=== PATIENT | female | born 1960 ===

== ENCOUNTER 2017-04-26 08:13 | Emergency (ER) | payer OTHER ==
--- NOTE | 2017-04-26 12:15 | C.PDOC ---
History Of Present Illness 56 y/o female, with no significant PMHx, presents to ED for evaluation of wound to the left ankle for the past year. Patient states she has to stand most of the time at work, causing the area to be more painful after work. Notes being seen by her PMD last year for similar symptoms, but has not followed up since then. Denies calf pain, shortness of breath, fever, redness, or any other complaints at this time. Time Seen by Provider: 04/26/17 08:46 Chief Complaint (Nursing): Abnormal Skin Integrity History Per: Patient History/Exam Limitations: no limitations Onset/Duration Of Symptoms: Days (1 year) Current Symptoms Are (Timing): Still Present Location Of Injury: Left: Ankle Quality Of Symptoms: Painful. denies: Draining Recent travel outside of the [place]: No Additional History Per: Patient Past Medical History Reviewed: Historical Data, Nursing Documentation, Vital Signs Vital Signs: Last Vital Signs Temp 97.8 F 04/26/17 12:28 Pulse 73 04/26/17 12:28 Resp 20 04/26/17 12:28 BP 111/72 04/26/17 12:28 Pulse Ox 100 04/26/17 12:38 Family History: States: Unknown Family Hx - Social History Hx Alcohol Use: No Hx Substance Use: No - Immunization History Hx Tetanus Toxoid Vaccination: No Hx Influenza Vaccination: No Hx Pneumococcal Vaccination: No Review Of Systems Except As Marked, All Systems Reviewed And Found Negative. Constitutional: Negative for: Fever, Chills Cardiovascular: Negative for: Chest Pain Respiratory: Negative for: Shortness of Breath Musculoskeletal: Negative for: Leg Pain Skin: Positive for: Other (wound to left ankle) Neurological: Negative for: Weakness, Numbness Physical Exam - Physical Exam Appears: Non-toxic, No Acute Distress Skin: Warm, Dry, Other (stage 2 ulcer to medial aspect of left ankle with surrounding hyperpigmentation. No warmth, erythema, or discharge) Head: Atraumatic, Normacephalic Eye(s): bilateral: Normal Inspection, EOMI Nose: Normal Oral Mucosa: Moist Neck: Normal ROM, Supple Chest: Symmetrical Cardiovascular: Rhythm Regular Respiratory: Normal Breath Sounds, No Rales, No Rhonchi, No Wheezing Extremity: Normal ROM, No Tenderness, No Pedal Edema, No Calf Tenderness, Capillary Refill (less than 2 seconds), No Deformity, No Swelling Pulses: Left Dorsalis Pedis: Normal, Right Dorsalis Pedis: Normal Neurological/Psych: Oriented x3, Normal Speech, Normal Motor, Normal Sensation Gait: Steady ED Course And Treatment O2 Sat by Pulse Oximetry: 100 (RA) Pulse Ox Interpretation: Normal - CT Scan/US LE vascular: Other Rad Studies (CT/US): Read By Radiologist, Radiology Report Reviewed CT/US Interpretation: No DVT Progress Note: Venous duplex scan of LLE ordered and reviewed. Podiatry resident was paged, but patient does not wish to stay here, and states she will follow up with outpatient podiatry clinic. Discussed the importance of strict follow up and the risks of untreated ulcer. Pt is being discharged home, instructed to follow up Podiatry in 1-2 days for further evaluation as discussed. Case discussed with Dr Mckenzie, agreed upon plan and treatment. Disposition - Disposition Referrals: [facility] [Outside] [facility] [Outside] Disposition: HOME/ ROUTINE Disposition Time: 12:13 Condition: STABLE Additional Instructions: Vaya a trujillo mdico o la clnica en 2-5 damian sin falta, para mas evaluacin. [place] [facility] los medicamentos mitul indicado. Volver a la meli de emergencia en cualquier momento si los sntomas persisten o empeoran. 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 - Scribe Statement The provider has reviewed the documentation as recorded by the Scribe Rahel De La Cruz All medical record entries made by the Cindiibalexa were at my direction and personally dictated by me. I have reviewed the chart and agree that the record accurately reflects my personal performance of the history, physical exam, medical decision making, and the department course for this patient. I have also personally directed, reviewed, and agree with the discharge instructions and disposition.
[2017-04-26 12:29] VITALS: BP 111/72; PULSE 73; RESP 20; TEMP 97.8
[2017-04-26 12:31] VITALS: O2SAT 100
--- NOTE | 2017-04-27 11:03 | VASCLAB ---
PROCEDURE: Left Lower Extremity Venous Duplex Exam. HISTORY: Pain PRIORS: None. TECHNIQUE: Left common femoral, femoral, popliteal and posterior tibial, peroneal and great saphenous veins were evaluated. Flow was assessed with color Doppler, compressibility, assessment of phasic flow and augmentation response. Report prepared by HANSEL Comer, RVT FINDINGS: LEFT: 1. Common Femoral Vein: 1.1. Compressibility - Fully compressible: Thrombus - None : Flow - Phasic: Augmentation -Normal: Reflux - Mild.2.48 seconds 2. Femoral Vein: 2.1. Compressibility - Fully compressible: Thrombus - None: Flow - Phasic: Augmentation -Normal: Reflux - None. 3. Popliteal Vein: 3.1. Compressibility - Fully compressible: Thrombus - None: Flow - Phasic: Augmentation -Normal: Reflux - Moderate. 3.91 seconds 4. Posterior Tibial Vein: 4.1. Compressibility - Fully compressible: Thrombus - None: Flow - Phasic: Augmentation -Normal: Reflux - None. 5. Peroneal Vein: 5.1. Compressibility - Fully compressible: Thrombus - None: Flow - Phasic: Augmentation -Normal: Reflux - Mild.2.84 seconds 6. Great Saphenous Vein: 6.1. Compressibility - Fully compressible: Thrombus - None: Flow - Phasic: Augmentation - Normal: Reflux - Severe. >4.99 seconds OTHER FINDINGS: Normal venous flow noted in the right common femoral vein. IMPRESSION: 1. No evidence of deep or superficial vein thrombosis of the left lower extremity with excellent venous flow. 2. Valvular incompetence noted at the left saphenofemoral junction, common femoral, popliteal, peroneal and great saphenous veins.
== END 2017-04-26 12:29 | disposition home or self-care (01) ==
LOC: C.ER 08:13
DX: L97.329 Non-pressure chronic ulcer of left ankle with unspecified severity (principal)

== ENCOUNTER 2017-06-14 14:26 | Inpatient (IN) | payer OTHER ==
[2017-06-14] MEDS ORDERED: Cefepime 1 GM in Sodium Chloride 0.9% 50 ML IVPB STA (14:58)
[2017-06-14 15:12] LABS: BASO # 0.2 K/uL (0.0-0.2); BASO % 1.5 % (0.0-2.0); EOS # 0.2 K/uL (0.0-0.7); HEMATOCRIT 37.9 % (34.0-47.0); LYMPH # 2.4 K/uL (1.0-4.3); LYMPH % 24.6 % (20.0-40.0); MEAN CELL VOLUME 91.5 fL (81.0-99.0); MEAN CORPUSCULAR HEMOGLOBIN 31.6 pg (27.0-31.0); MEAN CORPUSCULAR HGB CONC 34.5 g/dL (33.0-37.0); MEAN PLATELET VOLUME 9.6 fL (7.2-11.7); MONO # 0.5 K/uL (0.0-0.8); MONO % 4.8 % (0.0-10.0); RED CELL DISTRIBUTION WIDTH 14.6 % (11.5-14.5); WHITE BLOOD COUNT 9.7 K/uL (4.8-10.8)
[2017-06-14 15:24] LABS: ALKALINE PHOSPHATASE 62 U/L (38-126); ALT/SGPT 42 U/L (9-52); AST/SGOT 36 U/L (14-36); BILIRUBIN,TOTAL 0.5 mg/dL (0.2-1.3); BLOOD UREA NITROGEN 18 mg/dL (7-17); CALCIUM 8.8 mg/dl (8.6-10.4); CARBON DIOXIDE 24 mmol/L (22-30); CHLORIDE 104 mmol/L (98-107); GFR AFRICAN-AMERICAN > 60; GLUCOSE,RANDOM 94 mg/dL (65-105); POTASSIUM 3.9 mmol/L (3.6-5.2); SODIUM 138 mmol/L (132-148); TOTAL PROTEIN 8.6 g/dL (6.3-8.3)
[2017-06-14] MEDS ORDERED: Vancomycin 1 gm/NS 200 ml 1 GM/200 ML BAG IVPB ONE (16:00)
--- NOTE | 2017-06-14 16:22 | C.PDOC ---
History Of Present Illness Patient sent to ED from medical clinic for evaluation of left lower leg nonhealing worsening wound that has been present for approx 1 year. Patient is s/p outpatient PO antibiotics (Bactrim given from ED 04/2017) without improvement. She states area is painful, and that it originally began as wound from her boots rubbing her leg. She denies fever, trauma, calf pain, SOB. She also denies PMHx of DM, DVT, or PAD/PVD. Time Seen by Provider: 06/14/17 14:29 Chief Complaint (Nursing): Abnormal Skin Integrity History Per: Patient History/Exam Limitations: no limitations Onset/Duration Of Symptoms: Persistent Current Symptoms Are (Timing): Worse Location Of Injury: Left: Leg Quality Of Symptoms: Painful Severity: Moderate Past Medical History Reviewed: Historical Data, Nursing Documentation, Vital Signs Vital Signs: Last Vital Signs Temp 98.0 F 06/14/17 14:32 Pulse 82 06/14/17 14:32 Resp 18 06/14/17 14:32 BP 136/84 06/14/17 14:32 Pulse Ox 99 06/14/17 17:44 - Medical History PMH: No Chronic Diseases Family History: States: No Known Family Hx - Social History Hx Alcohol Use: No Hx Substance Use: No - Immunization History Hx Tetanus Toxoid Vaccination: No Hx Influenza Vaccination: No Hx Pneumococcal Vaccination: No Review Of Systems Except As Marked, All Systems Reviewed And Found Negative. Constitutional: Negative for: Fever, Chills Cardiovascular: Negative for: Chest Pain Respiratory: Negative for: Shortness of Breath Gastrointestinal: Negative for: Nausea, Vomiting, Diarrhea Skin: Positive for: Other (nonhealing, worsening wound left lower calf) Neurological: Negative for: Weakness, Numbness Physical Exam - Physical Exam Appears: Well, Non-toxic, No Acute Distress Skin: Other (see extremity exam) Eye(s): bilateral: Normal Inspection Oral Mucosa: Moist Cardiovascular: Rhythm Regular Respiratory: Normal Breath Sounds, No Rales, No Rhonchi, No Wheezing Gastrointestinal/Abdominal: Normal Exam, Bowel Sounds, Soft, No Tenderness Extremity: No Calf Tenderness, Capillary Refill (< 2 sec all digits ), No Deformity, Other (left lower calf, medial aspect with central pustule with purulent discharge, surrounding erythema and thickened skin/chronic skin changes , (+) TTP, no fluctuance) Extremity: Bilateral: Normal ROM Pulses: Left Dorsalis Pedis: Normal, Right Dorsalis Pedis: Normal Neurological/Psych: Oriented x3, Normal Motor, Normal Sensation ED Course And Treatment - Laboratory Results Result Diagrams: 06/14/17 15:08 06/14/17 15:08 O2 Sat by Pulse Oximetry: 99 (RA) Pulse Ox Interpretation: Normal - CT Scan/US right tib/fib Xray Other Rad Studies (CT/US): Read By Radiologist, Radiology Report Reviewed CT/US Interpretation: Accession No. : [id number]. Patient Name / ID : WAYNE Washington / [id number]. Exam Date : 06/14/2017 15:20:37 ( Approved ). Study Comment : Sex / Age : F / 56Y. Creator : Elidia Lopez MD. Dictator : Elidia Lopez MD. Work Order Detailer : Legal Office Administrator : Elidia Lopez MD. Approver2 : Report Date : 06/14/2017 16:40:14. My Comment : . PROCEDURE: Radiographs of the left tibia and fibula. HISTORY: distal tib/fib wound, r/o osteomyelitis. COMPARISON: None available. TECHNIQUE: Frontal and lateral views obtained. FINDINGS: BONES: Bone alignment and mineralization are normal. There is no acute fracture or bone destruction. JOINT SPACES: Unremarkable. OTHER FINDINGS: None. IMPRESSION: No evidence of bone destruction or definite evidence for osteomyelitis. venous doppler CT/US Interpretation: as per US tech - no acute DVT, (+) severe valvular incompetence of deep & superficial veins. Progress Note: Blood work, Xray of left tib/fib, venous doppler ordered and reviewed. Patient given IV Vancomycin and IV Cefepime for nonhealing infected wound, possible osteomyelitis. - Physician Consult Information Physician Contacted: Claudette Sandoval Outcome Of Conversation: Discussed patient with hospitalist, agrees with admission and requests surgery consult. Consult for Dr. Kishore barahona. Medical Decision Making Medical Decision Making: differential diagnoses considered: cellulitis, abscess, osteomyelitis, DVT, PVD/ PAD Disposition - Disposition Disposition: HOSPITALIZED Disposition Time: 17:19 Condition: STABLE - Clinical Impression Clinical Impression: Nonhealing ulcer of left lower leg, Cellulitis, Osteomyelitis Decision To Admit - Pt Status Changed To: Hospital Disposition Of: Inpatient - Admit Certification Admit to Inpatient:: After my assessment, the patient will require hospitalization for at least two midnights. This is because of the severity of symptoms shown, intensity of services needed, and/or the medical risk in this patient being treated as an outpatient. - InPatient: Physician Admission Certification: I certify that this patient requires 2 or more midnights of care for the following reason:: see notes - . Bed Request Type: Regular Admitting Physician: Claudette Sandoval Patient Diagnosis: Nonhealing ulcer of left lower leg, Cellulitis, Osteomyelitis
--- NOTE | 2017-06-14 16:41 | RAD ---
PROCEDURE: Radiographs of the left tibia and fibula. HISTORY: distal tib/fib wound, r/o osteomyelitis COMPARISON: None available. TECHNIQUE: Frontal and lateral views obtained. FINDINGS: BONES: Bone alignment and mineralization are normal. There is no acute fracture or bone destruction. JOINT SPACES: Unremarkable. OTHER FINDINGS: None. IMPRESSION: No evidence of bone destruction or definite evidence for osteomyelitis.
--- NOTE | 2017-06-14 18:37 | CP.PCM.HP ---
<Nehemias Zamarripa - Last Filed: 06/14/17 21:56> History of Present Illness - History of Present Illness History of Present Illness: PGY-1 H&P for Dr. Mccarthy CC: left leg wound This is a 56 year old female with no PMHx who presents complaining of a non- healing wound on the left leg. Patient states that this has been ongoing for about 1 year now. There is pain in the region of the wound that is described as a burning 3/10 without radiation. Patient believes that this could be due to the footwear that she uses at work. There was skin breakdown and gradual worsening over time. Swelling over the region has been ongoing for months per patient. Patient states that ambulation for an extended period of time worsens her pain. Patient has tried several different types of creams without any benefit. Patient denies any associated fevers, chills, other rashes, itching. PMHx: Denies PSHx: Tubal ligation Allergies: NKDA Social: Denies tobacco, drugs, alcohol. 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 PMD: [facility] Home meds: ASA 81, vitamin B complex, Ginko Present on Admission - Present on Admission Any Indicators Present on Admission: No Review of Systems - Constitutional Constitutional: absent: Chills, Fever - EENT Eyes: absent: Change in Vision Ears: absent: Decreased Hearing Nose/Mouth/Throat: absent: Nasal Congestion - Cardiovascular Cardiovascular: absent: Chest Pain - Respiratory Respiratory: absent: Dyspnea - Gastrointestinal Gastrointestinal: absent: Abdominal Pain, Nausea, Vomiting - Genitourinary Genitourinary: absent: Dysuria, Hematuria - Musculoskeletal Musculoskeletal: absent: Back Pain - Integumentary Integumentary: Wounds (left leg wound) - Neurological Neurological: absent: Numbness, Tingling, Weakness - Psychiatric Psychiatric: absent: Anxiety - Endocrine Endocrine: absent: Fatigue Past Patient History - Infectious Disease Hx of Infectious Diseases: None - Past Social History Smoking Status: Never Smoked - PSYCHIATRIC Hx Substance Use: No - SURGICAL HISTORY Hx Surgeries: Yes Hx Tubal Ligation: Yes - ANESTHESIA Hx Anesthesia: Yes Hx Anesthesia Reactions: No Meds Allergies/Adverse Reactions: Allergies Allergy/AdvReac Type Severity Reaction Status Date / Time No Known Allergies Allergy Verified 06/14/17 14:31 Physical Exam - Constitutional Appears: No Acute Distress - Head Exam Head Exam: ATRAUMATIC, NORMOCEPHALIC - Eye Exam Eye Exam: EOMI, PERRL - ENT Exam ENT Exam: Mucous Membranes Moist - Respiratory Exam Respiratory Exam: Clear to Auscultation Bilateral. absent: Rales, Rhonchi, Wheezes - Cardiovascular Exam Cardiovascular Exam: REGULAR RHYTHM, +S1, +S2 - GI/Abdominal Exam GI & Abdominal Exam: Normal Bowel Sounds, Soft. absent: Distended, Tenderness - Extremities Exam Extremities exam: Positive for: pedal pulses present Additional comments: Pedal pulses present bilaterally. Left leg superior and posterior to the medial malleolus is a 3cm x3cm circular lesion with dried blood and dried purulent material with eschar overlying. Non-pitting edema on left leg. No edema on the right leg. - Neurological Exam Neurological exam: Alert, CN II-XII Intact, Oriented x3 - Psychiatric Exam Psychiatric exam: Normal Affect, Normal Mood - Skin Skin Exam: Dry, Intact, Normal Color, Warm Results - Vital Signs Recent Vital Signs: Last Vital Signs Temp 98.0 F 06/14/17 14:32 Pulse 82 06/14/17 14:32 Resp 18 06/14/17 14:32 BP 136/84 06/14/17 14:32 Pulse Ox 99 06/14/17 18:29 - Labs Result Diagrams: 06/14/17 15:08 06/14/17 15:08 Labs: Laboratory Results - last 24 hr 06/14/17 06/14/17 15:08 15:08 WBC 9.7 RBC 4.15 Hgb 13.1 Hct 37.9 MCV 91.5 MCH 31.6 H MCHC 34.5 RDW 14.6 H Plt Count 224 MPV 9.6 Neut % (Auto) 67.1 Lymph % (Auto) 24.6 [place] % (Auto) 4.8 Eos % (Auto) 2.0 Baso % (Auto) 1.5 Neut # 6.5 Lymph # 2.4 [place] # 0.5 Eos # 0.2 Baso # 0.2 ESR 10 Sodium 138 Potassium 3.9 Chloride 104 Carbon Dioxide 24 Anion Gap 14 BUN 18 H Creatinine 0.5 L Est GFR ( Amer) > 60 Est GFR (Non-Af Amer) > 60 Random Glucose 94 Calcium 8.8 Total Bilirubin 0.5 AST 36 ALT 42 Alkaline Phosphatase 62 Total Protein 8.6 H Albumin 4.4 Globulin 4.2 H Albumin/Globulin Ratio 1.0 Assessment & Plan - Assessment and Plan (Free Text) Plan: Non-healing leg wound r/o osteomyelitis Vancomycin 1 gm Q12H NS @ 75 cc/hr f/u MRI left LE ED consulted surgery Dr. Novak, help appreciated. They recommended podiatry evaluation. Podiatry Dr. Avalos consulted, help appreciated. ID Dr. Jaramillo consulted, help appreciated. Left LE venous dopplers negative for DVT F/u ESR, CRP F/u blood, wound, urine cultures F/u UA Wound care referral Prophylactic Measure Heparin 5000 units SC Q8 Protonix 40 mg PO daily Heart Healthy Diet f/u hemoglobin A1c, TSH, lipid panel Case DW Dr. Shari Zamarripa PGY-1 <Braden Mccarthy - Last Filed: 06/15/17 19:32> Results - Vital Signs Recent Vital Signs: Last Vital Signs Temp 98.0 F 06/15/17 15:15 Pulse 76 06/15/17 15:15 Resp 20 06/15/17 15:15 BP 111/75 06/15/17 15:15 Pulse Ox 98 06/15/17 15:15 - Labs Result Diagrams: 06/15/17 08:02 06/15/17 08:02 Labs: Laboratory Results - last 24 hr 06/15/17 06/15/17 06/15/17 07:16 08:02 08:02 WBC 6.5 RBC 3.95 Hgb 12.5 Hct 35.7 MCV 90.5 MCH 31.7 H MCHC 35.0 RDW 14.4 Plt Count 210 MPV 9.3 Neut % (Auto) 69.8 Lymph % (Auto) 20.6 [place] % (Auto) 5.3 Eos % (Auto) 3.5 Baso % (Auto) 0.8 Neut # 4.5 Lymph # 1.3 [place] # 0.3 Eos # 0.2 Baso # 0.1 ESR 15 Sodium 140 Potassium 3.7 Chloride 108 H Carbon Dioxide 25 Anion Gap 11 BUN 10 Creatinine 0.6 L Est GFR ( Amer) > 60 Est GFR (Non-Af Amer) > 60 Random Glucose 91 Hemoglobin A1c Calcium 8.5 L Total Bilirubin 1.1 AST 31 ALT 31 Alkaline Phosphatase 55 C-React Prot High Sens Total Protein 6.4 Albumin 3.8 Globulin 2.5 Albumin/Globulin Ratio 1.5 Triglycerides 95 Cholesterol 142 LDL Cholesterol Direct 51 HDL Cholesterol 55 TSH 3rd Generation 3.42 Urine Color Straw Urine Clarity Clear Urine pH 5.0 Ur Specific [place] 1.012 Urine Protein Negative Urine Glucose (UA) Normal Urine Ketones Negative Urine Blood 1+ H Urine Nitrate Negative Urine Bilirubin Negative Urine Urobilinogen Normal Ur Leukocyte Esterase Neg Urine WBC (Auto) 1 Urine RBC (Auto) < 1 Ur Squamous Epith Cells < 1 06/15/17 06/15/17 08:02 08:02 WBC RBC Hgb Hct MCV MCH MCHC RDW Plt Count MPV Neut % (Auto) Lymph % (Auto) [place] % (Auto) Eos % (Auto) Baso % (Auto) Neut # Lymph # [place] # Eos # Baso # ESR Sodium Potassium Chloride Carbon Dioxide Anion Gap BUN Creatinine Est GFR ( Amer) Est GFR (Non-Af Amer) Random Glucose Hemoglobin A1c 5.6 Calcium Total Bilirubin AST ALT Alkaline Phosphatase C-React Prot High Sens 2.86 Total Protein Albumin Globulin Albumin/Globulin Ratio Triglycerides Cholesterol LDL Cholesterol Direct HDL Cholesterol TSH 3rd Generation Urine Color Urine Clarity Urine pH Ur Specific [place] Urine Protein Urine Glucose (UA) Urine Ketones Urine Blood Urine Nitrate Urine Bilirubin Urine Urobilinogen Ur Leukocyte Esterase Urine WBC (Auto) Urine RBC (Auto) Ur Squamous Epith Cells Attending/Attestation - Attestation I have personally seen and examined this patient.: Yes I have fully participated in the care of the patient.: Yes I have reviewed all pertinent clinical information: Yes Notes (Text): patient was seen and examined \1.cellulitis of leg 2.Nonhealing wound infection plan discussed with the resident and agree with the documentation
[2017-06-14] MEDS ORDERED: Sodium Chloride 0.9% 1,000 ML ONE (18:59)
[2017-06-14] MEDS: Sodium Chloride 0.9% 1,000 ML IV SCH (19:06)
[2017-06-14 19:49] VITALS: RESP 20
--- NOTE | 2017-06-14 20:11 | CP.PCM.CON ---
History of Present Illness - History of Present Illness History of Present Illness: GENERAL SURGERY CONSULT NOTE FOR DR. PATTEN 56yo F with no PMHx presents to the ED with non healing leg wound. The wound first appeared about a year and a half ago after the patient got new boots. She states that she walked a lot in the boots which created a wound there which has since progressed. She has since stopped wearing them but her wound did not improve. Three days ago, she noticed some smelly drainage from the wound. She states that she has pain while walking but only at the wound site and not anywhere else. Currently, her pain is completely gone. She denies nausea, vomiting, diarrhea, CP, SOB. She has no history of diabetes and never smoked. Per the patient, her left leg has been swollen and larger than her right leg ever since the wound first appeared. 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 PMHx: none Surgeries: tubal ligation Allergies: none Social history: denies etoh, tobacco use, or illicit drug use. States her only "bad habit" is lots of caffeine Review of Systems - Review of Systems All systems: reviewed and no additional remarkable complaints except (as per HPI ) Past Patient History - Infectious Disease Hx of Infectious Diseases: None - Past Social History Smoking Status: Never Smoked - PSYCHIATRIC Hx Substance Use: No - SURGICAL HISTORY Hx Surgeries: Yes Hx Tubal Ligation: Yes - ANESTHESIA Hx Anesthesia: Yes Hx Anesthesia Reactions: No Meds Allergies/Adverse Reactions: Allergies Allergy/AdvReac Type Severity Reaction Status Date / Time No Known Allergies Allergy Verified 06/14/17 14:31 - Medications Medications: Current Medications Heparin Sodium (Porcine) (Heparin) 5,000 units SC Q8 [facility] Sodium Chloride (Sodium Chloride 0.9%) 1,000 mls @ 75 mls/hr IV .[id number] [facility] Last Admin: 06/14/17 19:06 Dose: 75 mls/hr Vancomycin/Sodium Chloride (Vancomycin 1 Gm/Ns 200 Ml) 1 gm in 200 mls @ 133 mls/hr IVPB Q12H [facility] Stop: 06/20/17 07:01 Pantoprazole Sodium (Protonix Ec Tab) 40 mg PO DAILY [place] Physical Exam - Constitutional Appears: Well, Non-toxic, No Acute Distress - Head Exam Head Exam: ATRAUMATIC, NORMAL INSPECTION - Eye Exam Eye Exam: EOMI, Normal appearance - Respiratory Exam Respiratory Exam: NORMAL BREATHING PATTERN. absent: Respiratory Distress - Cardiovascular Exam Cardiovascular Exam: +S1, +S2 - GI/Abdominal Exam GI & Abdominal Exam: Soft. absent: Tenderness - Extremities Exam Extremities exam: Positive for: pedal pulses present. Negative for: calf tenderness, tenderness Additional comments: Strong palpable DP and PT pulses bilaterally Left leg: edematous, warmer to touch, nontender Right leg: no edema, cooler to touch, nontender - Neurological Exam Neurological exam: Alert, Oriented x3 - Psychiatric Exam Psychiatric exam: Normal Affect, Normal Mood - Skin Skin Exam: Dry, Warm Additional comments: On left medial leg: circular lesion with dried purulent discharge. Surrounding erythema. No fluctuance or induration. Results - Vital Signs Recent Vital Signs: Last Vital Signs Temp 97.9 F 06/14/17 19:48 Pulse 69 06/14/17 19:48 Resp 20 06/14/17 19:48 BP 129/84 06/14/17 19:48 Pulse Ox 98 06/14/17 19:48 - Labs Result Diagrams: 06/14/17 15:08 06/14/17 15:08 Labs: Laboratory Results - last 24 hr 06/14/17 06/14/17 06/14/17 15:08 15:08 19:06 WBC 9.7 RBC 4.15 Hgb 13.1 Hct 37.9 MCV 91.5 MCH 31.6 H MCHC 34.5 RDW 14.6 H Plt Count 224 MPV 9.6 Neut % (Auto) 67.1 Lymph % (Auto) 24.6 [place] % (Auto) 4.8 Eos % (Auto) 2.0 Baso % (Auto) 1.5 Neut # 6.5 Lymph # 2.4 [place] # 0.5 Eos # 0.2 Baso # 0.2 ESR 10 APTT 36 H Sodium 138 Potassium 3.9 Chloride 104 Carbon Dioxide 24 Anion Gap 14 BUN 18 H Creatinine 0.5 L Est GFR ( Amer) > 60 Est GFR (Non-Af Amer) > 60 Random Glucose 94 Calcium 8.8 Total Bilirubin 0.5 AST 36 ALT 42 Alkaline Phosphatase 62 Total Protein 8.6 H Albumin 4.4 Globulin 4.2 H Albumin/Globulin Ratio 1.0 Assessment & Plan - Assessment and Plan (Free Text) Assessment: 56yo F with no PMHx presents with non healing left leg wound. - X-ray: no evidence of osteomyelitis - Leg US: no DVT - Patient has good circulation to both lower extremities - No I&D needed at this time - Treat locally - Elevate leg to decrease edema - Recommend podiatry consult - Discussed plan with Dr. Kishore Schmitt PGY-3
[2017-06-14] MEDS: Cefepime IV 2 gm in Dextrose 2 GM/100 ML BAG IVPB SCH (22:04)
--- NOTE | 2017-06-14 23:24 | CP.PCM.CON ---
History of Present Illness - History of Present Illness History of Present Illness: Podiatry note for Dr. Avalos 56 year old female with no PMHx seen at bedside for chronic, nonhealing venous stasis ulceration to the medial, distal aspect of her left leg that she states has been present for the last 8 months. She states that the wound began when her boots rubbed the skin off of that area of her leg. Patient states that the wound is the most healed that it has ever been but is still not completely healed and causes her pain when she presses on it. Patient states that she has noticed very small amounts of clear drainage from the wound and a small periwound ring of redness but denies any purulent drainage or malodor. Patient denies any recent N/V/F/C/CP/SOB/posterior calf pain/constipation/urinary retention. Patient denies any further pedal complaints at this time. PMH: Denies Meds: Aspirn, Ginkgo Biloba leaf, previous use of Bactrim (DC'd) All: NKDA PSH: Tubal ligation FH: Unremarkable SH: Denies tobacco, alcohol or illicit drug use Review of Systems - Review of Systems Review of Systems: ROS as per HPI. All other systems reviewed and found to be negative Past Patient History - Infectious Disease Hx of Infectious Diseases: None - Past Medical History & Family History Past Medical History?: Yes - Past Social History Smoking Status: Never Smoked - MUSCULOSKELETAL/RHEUMATOLOGICAL Hx Falls: No - PSYCHIATRIC Hx Substance Use: No - SURGICAL HISTORY Hx Surgeries: Yes Hx Tubal Ligation: Yes - ANESTHESIA Hx Anesthesia: Yes Hx Anesthesia Reactions: No Meds Allergies/Adverse Reactions: Allergies Allergy/AdvReac Type Severity Reaction Status Date / Time No Known Allergies Allergy Verified 06/14/17 14:31 - Medications Medications: Current Medications Heparin Sodium (Porcine) (Heparin) 5,000 units SC Q8 [facility] Last Admin: 06/14/17 21:49 Dose: 5,000 units Sodium Chloride (Sodium Chloride 0.9%) 1,000 mls @ 75 mls/hr IV .[id number] [facility] Last Admin: 06/14/17 19:06 Dose: 75 mls/hr Vancomycin/Sodium Chloride (Vancomycin 1 Gm/Ns 200 Ml) 1 gm in 200 mls @ 133 mls/hr IVPB Q12H [facility] Stop: 06/20/17 07:01 Cefepime HCl (Maxipime Iv 2 Gm Premix) 2 gm in 100 mls @ 200 mls/hr IVPB Q12 [facility] Stop: 06/19/17 22:01 Last Admin: 06/14/17 22:04 Dose: 200 mls/hr Pantoprazole Sodium (Protonix Ec Tab) 40 mg PO DAILY [facility] Physical Exam - Constitutional Appears: Well, Non-toxic, No Acute Distress - Extremities Exam Additional comments: LE focused exam: Vasc: DP/PT pulses palpable 2/4 b/l. Skin temperature warm to warm from proximal to distal. CFT < 3 seconds to all digits b/l. Minimal edema noted to periwound area Neuro: epicritic and protective sensation grossly intact b/l Derm: Approx. 3 cm x 3 cm x 0.1 cm venous stasis ulceration noted to medial distal aspect of patient's left leg. 90% coverage by eschar. Minimal periwound erythema noted. < 1 cc of serous drainage expressed from wound. No probe to bone , tunneling, tracking or undermining. No malodor, increased warmth, cellulitic streaking or purulent drainage noted. Otherwise no open lesions, maceration, xerosis, abnormal pigmentation, abnormal growths noted to b/l LE. MSK: POP to wound site. No gross anatomical deformities noted clinically Results - Vital Signs Recent Vital Signs: Last Vital Signs Temp 97.9 F 06/14/17 19:48 Pulse 69 06/14/17 19:48 Resp 20 06/14/17 19:48 BP 129/84 06/14/17 19:48 Pulse Ox 98 06/14/17 19:48 - Labs Result Diagrams: 06/14/17 15:08 06/14/17 15:08 Labs: Laboratory Results - last 24 hr 06/14/17 06/14/17 06/14/17 15:08 15:08 19:06 WBC 9.7 RBC 4.15 Hgb 13.1 Hct 37.9 MCV 91.5 MCH 31.6 H MCHC 34.5 RDW 14.6 H Plt Count 224 MPV 9.6 Neut % (Auto) 67.1 Lymph % (Auto) 24.6 Henry % (Auto) 4.8 Eos % (Auto) 2.0 Baso % (Auto) 1.5 Neut # 6.5 Lymph # 2.4 Henry # 0.5 Eos # 0.2 Baso # 0.2 ESR 10 APTT 36 H Sodium 138 Potassium 3.9 Chloride 104 Carbon Dioxide 24 Anion Gap 14 BUN 18 H Creatinine 0.5 L Est GFR ( Amer) > 60 Est GFR (Non-Af Amer) > 60 Random Glucose 94 Calcium 8.8 Total Bilirubin 0.5 AST 36 ALT 42 Alkaline Phosphatase 62 Total Protein 8.6 H Albumin 4.4 Globulin 4.2 H Albumin/Globulin Ratio 1.0 Assessment & Plan - Assessment and Plan (Free Text) Assessment: 56 year old female seen for minimally infected chronic venous stasis ulceration of distal medial left leg Plan: Patient seen and evaluated No leukocytosis, afebrile Started Cefepime, Vanco in ED DVT prophylaxis: Heparin drip started in ED F/u wound cx leg: prelim- GP cocci in pairs Tib/fib xray (-) for OM F/u MRI F/U LE duplex Patient wound dressed with betadine soaked gauze, kirlix, EMILY Podiatry will continue to follow while patient in house - Date & Time Date: 06/14/17 Time: 23:33
[2017-06-15] MEDS: Vancomycin 1 gm/NS 200 ml 1 GM/200 ML BAG IVPB SCH ×2 (06:24→18:57)
[2017-06-15] MEDS: Sodium Chloride 0.9% 1,000 ML IV SCH ×2 (06:34→21:33)
[2017-06-15 07:31] LABS: RBC URINE < 1 /hpf (0-3); URINE BILIRUBIN NEGATIVE (NEGATIVE); URINE BLOOD 1+ (NEGATIVE); URINE COLOR Straw (YELLOW); URINE GLUCOSE (UA) NORMAL (Normal); URINE KETONE NEGATIVE (NEGATIVE); URINE LEUKOCYTE ESTERASE NEG Leu/uL (Negative); URINE PROTEIN NEGATIVE (NEGATIVE); URINE UROBILINOGEN NORMAL mg/dL (0.2-1.0); WBC URINE 1 /hpf (0-5)
--- NOTE | 2017-06-15 07:55 | CP.PCM.PN ---
Subjective - Date & Time of Evaluation Date of Evaluation: 06/15/17 Time of Evaluation: 07:00 - Subjective Subjective: Surgical Progress Note: Patient was seen and examined at bedside in the AM. Patient states she does have tenderness to her left lower extremity where the wound is located. She states the swelling started about a week ago because she has not been moving around as much. She states this has never happened before. She denies fever, nausea or vomiting. Objective - Vital Signs/Intake and Output Vital Signs (last 24 hours): Temp Pulse Resp BP Pulse Ox 98.2 F 64 20 113/76 98 06/14/17 23:25 06/14/17 23:25 06/14/17 23:25 06/14/17 23:25 06/14/17 23:25 Intake and Output: 06/15/17 06/15/17 06:59 18:59 Intake Total 600 Balance 600 - Medications Medications: Current Medications Heparin Sodium (Porcine) (Heparin) 5,000 units SC Q8 [facility] Last Admin: 06/15/17 06:26 Dose: 5,000 units Sodium Chloride (Sodium Chloride 0.9%) 1,000 mls @ 75 mls/hr IV .[id number] [facility] Last Admin: 06/15/17 06:34 Dose: 75 mls/hr Vancomycin/Sodium Chloride (Vancomycin 1 Gm/Ns 200 Ml) 1 gm in 200 mls @ 133 mls/hr IVPB Q12H [facility] Stop: 06/20/17 07:01 Last Admin: 06/15/17 06:24 Dose: 133 mls/hr Cefepime HCl (Maxipime Iv 2 Gm Premix) 2 gm in 100 mls @ 200 mls/hr IVPB Q12 [facility] Stop: 06/19/17 22:01 Last Admin: 06/14/17 22:04 Dose: 200 mls/hr Pantoprazole Sodium (Protonix Ec Tab) 40 mg PO DAILY [facility] - Labs Labs: 06/14/17 15:08 06/14/17 15:08 APTT 36 SECONDS (21-34) H 06/14/17 19:06 - Constitutional Appears: No Acute Distress - Head Exam Head Exam: ATRAUMATIC, NORMAL INSPECTION - Eye Exam Eye Exam: EOMI, Normal appearance - ENT Exam ENT Exam: Mucous Membranes Moist - Respiratory Exam Respiratory Exam: NORMAL BREATHING PATTERN. absent: Respiratory Distress - Cardiovascular Exam Cardiovascular Exam: +S1, +S2 - GI/Abdominal Exam GI & Abdominal Exam: Soft. absent: Tenderness - Extremities Exam Extremities Exam: Tenderness (left lower extremity wound) - Neurological Exam Neurological Exam: Alert, Awake, Oriented x3 - Psychiatric Exam Psychiatric exam: Normal Affect, Normal Mood - Skin Skin Exam: Dry, Intact, Warm Assessment and Plan - Assessment and Plan (Free Text) Assessment: 56 year old female with no past medical history presents with non healing left leg wound. - X-ray: no evidence of osteomyelitis - Leg US: no DVT - No I&D needed at this time - Continue elevating leg to decrease edema Aide Gay PGY-1
[2017-06-15 08:18] LABS: BASO # 0.1 K/uL (0.0-0.2); BASO % 0.8 % (0.0-2.0); EOS # 0.2 K/uL (0.0-0.7); EOS % 3.5 % (0.0-4.0); HEMATOCRIT 35.7 % (34.0-47.0); LYMPH # 1.3 K/uL (1.0-4.3); LYMPH % 20.6 % (20.0-40.0); MEAN CELL VOLUME 90.5 fL (81.0-99.0); MEAN CORPUSCULAR HEMOGLOBIN 31.7 pg (27.0-31.0); MEAN PLATELET VOLUME 9.3 fL (7.2-11.7); MONO # 0.3 K/uL (0.0-0.8); MONO % 5.3 % (0.0-10.0); RED CELL DISTRIBUTION WIDTH 14.4 % (11.5-14.5); WHITE BLOOD COUNT 6.5 K/uL (4.8-10.8)
[2017-06-15 08:26] LABS: ALB/GLOB RATIO 1.5 (1.0-2.1); ALKALINE PHOSPHATASE 55 U/L (38-126); ALT/SGPT 31 U/L (9-52); AST/SGOT 31 U/L (14-36); BILIRUBIN,TOTAL 1.1 mg/dL (0.2-1.3); BLOOD UREA NITROGEN 10 mg/dL (7-17); CALCIUM 8.5 mg/dl (8.6-10.4); CARBON DIOXIDE 25 mmol/L (22-30); CHLORIDE 108 mmol/L (98-107); CHOLESTEROL 142 mg/dL (0-199); GFR AFRICAN-AMERICAN > 60; GLUCOSE,RANDOM 91 mg/dL (65-105); POTASSIUM 3.7 mmol/L (3.6-5.2); SODIUM 140 mmol/L (132-148); TOTAL PROTEIN 6.4 g/dL (6.3-8.3)
[2017-06-15 08:54] LABS: THYROID STIMULATING HORMONE 3.42 mIU/L (0.46-4.68)
[2017-06-15] MEDS: Pantoprazole 40 mg EC Tab PO SCH (10:27)
[2017-06-15] MEDS: Cefepime IV 2 gm in Dextrose 2 GM/100 ML BAG IVPB SCH ×2 (10:27→21:30)
--- NOTE | 2017-06-15 12:45 | CP.PCM.PN ---
Subjective - Date & Time of Evaluation Date of Evaluation: 06/15/17 Time of Evaluation: 12:45 - Subjective Subjective: Podiatry Progress note for Dr. Avalos 56 year old female was seen at bedside regarding left leg ulceration. She denies any pain to the area. AAOx3, NAD. Dressing is clean, dry, intact to left leg. She denies any n/v/f/c/sob/cp. Objective - Vital Signs/Intake and Output Vital Signs (last 24 hours): Temp Pulse Resp BP Pulse Ox 98.2 F 71 20 106/68 97 06/15/17 08:04 06/15/17 08:04 06/15/17 08:04 06/15/17 08:04 06/15/17 08:04 Intake and Output: 06/15/17 06/15/17 06:59 18:59 Intake Total 600 Balance 600 - Medications Medications: Current Medications Heparin Sodium (Porcine) (Heparin) 5,000 units SC Q8 [facility] Last Admin: 06/15/17 06:26 Dose: 5,000 units Sodium Chloride (Sodium Chloride 0.9%) 1,000 mls @ 75 mls/hr IV .[id number] [facility] Last Admin: 06/15/17 06:34 Dose: 75 mls/hr Vancomycin/Sodium Chloride (Vancomycin 1 Gm/Ns 200 Ml) 1 gm in 200 mls @ 133 mls/hr IVPB Q12H [facility] Stop: 06/20/17 07:01 Last Admin: 06/15/17 06:24 Dose: 133 mls/hr Cefepime HCl (Maxipime Iv 2 Gm Premix) 2 gm in 100 mls @ 200 mls/hr IVPB Q12 [facility] Stop: 06/19/17 22:01 Last Admin: 06/15/17 10:27 Dose: 200 mls/hr Pantoprazole Sodium (Protonix Ec Tab) 40 mg PO DAILY [facility] Last Admin: 06/15/17 10:27 Dose: 40 mg - Labs Labs: 06/15/17 08:02 06/15/17 08:02 APTT 36 SECONDS (21-34) H 06/14/17 19:06 - Constitutional Appears: Well, Non-toxic, No Acute Distress - Extremities Exam Additional comments: Lower extremity focused exam: Vasc: DP and PT pulses palpable 2/4 b/l. Skin temperature warm to warm from proximal to distal. CFT < 3 seconds to all digits b/l. Minimal edema noted to periwound area Neuro: epicritic and protective sensation grossly intact b/l Derm: Approximately 3 cm x 3 cm x 0.1 cm open ulceration noted to medial distal aspect of patient's left leg, 90% coverage by eschar. Minimal periwound erythema noted. Scant amount of serous drainage expressed from wound. No probe to bone, tunneling, tracking or undermining. No malodor, increased warmth, cellulitic streaking or purulent drainage noted. Skin is well hydrated b/l. Ortho: Tenderness on palpation to wound on the left leg - Neurological Exam Neurological Exam: Alert, Awake, Oriented x3 - Psychiatric Exam Psychiatric exam: Normal Affect, Normal Mood Assessment and Plan - Assessment and Plan (Free Text) Assessment: 56 year old female with venous stasis ulceration of distal medial left leg Plan: Patient examined and evaluated Discussed in detail with attending, Dr. Avalos lab, vitals, chart reviewed;afebrile, WBC 6.5 Cont abx per ID MRI read pending Venous Duplex: no evidence of DVT, valvular incompetenece noted at the left saphenofemoral junction, popliteal, posterior tibial, peroneal and great saphenous veins Patient wound dressed with betadine gauze, telfa, kerlix, EMILY Podiatry will continue to follow while patient in house
--- NOTE | 2017-06-15 13:56 | VASCLAB ---
PROCEDURE: Left Lower Extremity Venous Duplex Exam. HISTORY: Chronic ulcer, r/o dvt PRIORS: None. TECHNIQUE: Left common femoral, femoral, popliteal and posterior tibial, peroneal and great saphenous veins were evaluated. Flow was assessed with color Doppler, compressibility, assessment of phasic flow and augmentation response. Report prepared by KAMINI Matute FINDINGS: LEFT: 1. Common Femoral Vein: 1.1. Compressibility - Fully compressible: Thrombus - None : Flow - Phasic: Augmentation -Normal: Reflux - None. 2. Femoral Vein: 2.1. Compressibility - Fully compressible: Thrombus - None: Flow - Phasic: Augmentation -Normal: Reflux - None. 3. Popliteal Vein: 3.1. Compressibility - Fully compressible: Thrombus - None: Flow - Phasic: Augmentation -Normal: Reflux - Mild.2.25s 4. Posterior Tibial Vein: 4.1. Compressibility - Fully compressible: Thrombus - None: Flow - Phasic: Augmentation -Normal: Reflux - Mild. 5. Peroneal Vein: 5.1. Compressibility - Fully compressible: Thrombus - None: Flow - Phasic: Augmentation -Normal: Reflux - Mild. 6. Great Saphenous Vein: 6.1. Compressibility - Fully compressible: Thrombus - None: Flow - Phasic: Augmentation - Normal: Reflux - Severe. OTHER FINDINGS: Normal venous flow noted in the right common femoral vein. IMPRESSION: 1. No evidence of deep or superficial vein thrombosis of the left lower extremity. 2. Valvular incompetence noted at the left saphenofemoral junction, popliteal, posterior tibial, peroneal and great saphenous veins.
--- NOTE | 2017-06-15 16:33 | MRI ---
PROCEDURE: MRI of the left ankle without contrast HISTORY: r/o osteomyelitis, left leg wound COMPARISON: Comparison is made with previous x-ray of the left tibial fibular bone dated 06/14/2017. TECHNIQUE: Axial coronal and sagittal MRI images of the left ankle were obtained without IV contrast administration. FINDINGS: There is a skin and subcutaneous defect at the medial aspect of the left ankle surrounding with inflammatory changes. There is a no evidence of discrete drainable fluid collection at the medial malleolus. There is no evidence of cortical erosion or significant bone marrow edema in the medial malleolus and in the left ankle osseous structure to suggest active osteomyelitis. There is well demarcated heterogeneous signal bony lesion with hypointense rim noted at the midportion of the left talar bone of uncertain etiology and may represent benign bony lesion. There is no evidence of significant adjacent bone marrow edema or cortical destructionThere is small amount of fluid surrounding the flexor Tendon particularly the posterior tibialis tendon suggestive of tendinopathy. There is also small amount of fluid adjacent to the peroneal tendon suggestive of mild tendinopathy. Diffuse soft tissue edema noted at the distal portion of the left leg and left ankle. IMPRESSION: No evidence of osteomyelitis. Skin and subcutaneous defect adjacent to the medial malleolus without evidence of discrete drainable fluid collection. Well demarcated bony lesion at the midportion of the left talar bone measures 11.1 millimeter in the transverse diameter and 12.3 millimeter in the AP diameter demonstrates hypointense thin rim without evidence of surrounding bone marrow edema. If clinically warranted further evaluation by postcontrast images may be obtained. The differential consideration includes both benign and less likely malignant neoplasm. Soft tissue edema at the distal left leg and around the left ankle. Mild flexor and peroneal tendinopathy.
--- NOTE | 2017-06-15 17:10 | CP.PCM.PN ---
<Wyatt Forman - Last Filed: 06/15/17 17:01> Subjective - Date & Time of Evaluation Date of Evaluation: 06/15/17 Time of Evaluation: 08:00 - Subjective Subjective: PGY1 Medicine Note for Dr. Mccarthy Patient seen and examined at bedside this morning. Patient states she is feeling much better and would like to go home. She was informed that we needed to rule out osteomyolitis before we could safely discharge her. If the MRI is negative, she could be discharge home in the morning. She reports she has work in the morning and can not miss any more days. Patient has no complaints at this time. Objective - Vital Signs/Intake and Output Vital Signs (last 24 hours): Temp Pulse Resp BP Pulse Ox 98.0 F 76 20 111/75 98 06/15/17 15:15 06/15/17 15:15 06/15/17 15:15 06/15/17 15:15 06/15/17 15:15 Intake and Output: 06/15/17 06/15/17 06:59 18:59 Intake Total 600 985 Balance 600 985 - Medications Medications: Current Medications Heparin Sodium (Porcine) (Heparin) 5,000 units SC Q8 [facility] Last Admin: 06/15/17 14:16 Dose: Not Given Sodium Chloride (Sodium Chloride 0.9%) 1,000 mls @ 75 mls/hr IV .[id number] [facility] Last Admin: 06/15/17 06:34 Dose: 75 mls/hr Vancomycin/Sodium Chloride (Vancomycin 1 Gm/Ns 200 Ml) 1 gm in 200 mls @ 133 mls/hr IVPB Q12H [facility] Stop: 06/20/17 07:01 Last Admin: 06/15/17 06:24 Dose: 133 mls/hr Cefepime HCl (Maxipime Iv 2 Gm Premix) 2 gm in 100 mls @ 200 mls/hr IVPB Q12 [facility] Stop: 06/19/17 22:01 Last Admin: 06/15/17 10:27 Dose: 200 mls/hr Pantoprazole Sodium (Protonix Ec Tab) 40 mg PO DAILY [facility] Last Admin: 06/15/17 10:27 Dose: 40 mg Pneumococcal Polyvalent Vaccine (Pneumovax 23 Vaccine) 0.5 ml IM .ONCE ONE Stop: 12/24/17 10:01 - Labs Labs: 06/15/17 08:02 06/15/17 08:02 APTT 36 SECONDS (21-34) H 06/14/17 19:06 - Constitutional Appears: Non-toxic, No Acute Distress - Head Exam Head Exam: ATRAUMATIC, NORMOCEPHALIC - Eye Exam Eye Exam: EOMI, Normal appearance - ENT Exam ENT Exam: Mucous Membranes Moist - Respiratory Exam Respiratory Exam: Clear to Ausculation Bilateral, NORMAL BREATHING PATTERN. absent: Accessory Muscle Use, Respiratory Distress - GI/Abdominal Exam GI & Abdominal Exam: Soft. absent: Distended, Firm, Guarding, Rigid, Tenderness - Extremities Exam Extremities Exam: absent: Calf Tenderness, Tenderness Additional comments: No erythema, left LE swelling is greatly improved. - Neurological Exam Neurological Exam: Alert, Awake, Oriented x3 - Psychiatric Exam Psychiatric exam: Normal Affect, Normal Mood - Skin Skin Exam: Dry, Warm Assessment and Plan - Assessment and Plan (Free Text) Plan: Non-healing leg wound r/o osteomyelitis - improving Vancomycin 1 gm IVPB q12h Cefepime 2gm IVPB q12h NS @ 75 cc/hr Left LE MRI 06/15 - No evidence of osteomyelitis. Skin and subcutaneous defect adjacent to the medial malleolus without evidence of discrete drainable fluid collection. Well demarcated bony lesion at the midportion of the left talar bone measures 11.1 millimeter in the transverse diameter and 12.3 millimeter in the AP diameter demonstrates hypointense thin rim without evidence of surrounding bone marrow edema. If clinically warranted further evaluation by postcontrast images may be obtained. The differential consideration includes both benign and less likely malignant neoplasm. Soft tissue edema at the distal left leg and around the left ankle. Mild flexor and peroneal tendinopathy. ED consulted surgery Dr. Novak, help appreciated. They recommended podiatry evaluation. Podiatry Dr. Avalos consulted, help appreciated. ID Dr. Jaramillo consulted, help appreciated. Left LE venous dopplers negative for DVT ESR 15 CRP 2.86 blood, wound cultures - negative at 24 hours UA - negative Wound care referral Prophylactic Measure Heparin 5000 units SC Q8 Protonix 40 mg PO daily Heart Healthy Diet hemoglobin A1c 5.6 TSH 3.42 Lipid panel - HDL 55/LDL 51/Chol 142/Trigly [address] Shari Schneider Dasia PGY1 <Braden Mccarthy - Last Filed: 06/15/17 19:33> Objective - Vital Signs/Intake and Output Vital Signs (last 24 hours): Temp Pulse Resp BP Pulse Ox 98.0 F 76 20 111/75 98 06/15/17 15:15 06/15/17 15:15 06/15/17 15:15 06/15/17 15:15 06/15/17 15:15 Intake and Output: 06/15/17 06/16/17 18:59 06:59 Intake Total 985 Balance 985 - Medications Medications: Current Medications Heparin Sodium (Porcine) (Heparin) 5,000 units SC Q8 [facility] Last Admin: 06/15/17 14:16 Dose: Not Given Sodium Chloride (Sodium Chloride 0.9%) 1,000 mls @ 75 mls/hr IV .[id number] [facility] Last Admin: 06/15/17 06:34 Dose: 75 mls/hr Vancomycin/Sodium Chloride (Vancomycin 1 Gm/Ns 200 Ml) 1 gm in 200 mls @ 133 mls/hr IVPB Q12H [facility] Stop: 06/20/17 07:01 Last Admin: 06/15/17 18:57 Dose: 133 mls/hr Cefepime HCl (Maxipime Iv 2 Gm Premix) 2 gm in 100 mls @ 200 mls/hr IVPB Q12 [facility] Stop: 06/19/17 22:01 Last Admin: 06/15/17 10:27 Dose: 200 mls/hr Pantoprazole Sodium (Protonix Ec Tab) 40 mg PO DAILY [facility] Last Admin: 06/15/17 10:27 Dose: 40 mg Pneumococcal Polyvalent Vaccine (Pneumovax 23 Vaccine) 0.5 ml IM .ONCE ONE Stop: 06/17/17 10:01 - Labs Labs: 06/15/17 08:02 06/15/17 08:02 APTT 36 SECONDS (21-34) H 06/14/17 19:06 Attending/Attestation - Attestation I have personally seen and examined this patient.: Yes I have fully participated in the care of the patient.: Yes I have reviewed all pertinent clinical information, including history, physical exam and plan: Yes Notes (Text): 1.cellulitis of leg and leg ulcer/non healing infected 06/15/17 19:33
--- NOTE | 2017-06-15 17:17 | CP.PCM.CON ---
History of Present Illness - History of Present Illness History of Present Illness: dictated Past Patient History - Infectious Disease Hx of Infectious Diseases: None - Past Medical History & Family History Past Medical History?: Yes - Past Social History Smoking Status: Never Smoked - MUSCULOSKELETAL/RHEUMATOLOGICAL Hx Falls: No - PSYCHIATRIC Hx Substance Use: No - SURGICAL HISTORY Hx Surgeries: Yes Hx Tubal Ligation: Yes - ANESTHESIA Hx Anesthesia: Yes Hx Anesthesia Reactions: No Meds Allergies/Adverse Reactions: Allergies Allergy/AdvReac Type Severity Reaction Status Date / Time No Known Allergies Allergy Verified 06/14/17 14:31 - Medications Medications: Current Medications Heparin Sodium (Porcine) (Heparin) 5,000 units SC Q8 [facility] Last Admin: 06/15/17 14:16 Dose: Not Given Sodium Chloride (Sodium Chloride 0.9%) 1,000 mls @ 75 mls/hr IV .[id number] [facility] Last Admin: 06/15/17 06:34 Dose: 75 mls/hr Vancomycin/Sodium Chloride (Vancomycin 1 Gm/Ns 200 Ml) 1 gm in 200 mls @ 133 mls/hr IVPB Q12H [facility] Stop: 06/20/17 07:01 Last Admin: 06/15/17 06:24 Dose: 133 mls/hr Cefepime HCl (Maxipime Iv 2 Gm Premix) 2 gm in 100 mls @ 200 mls/hr IVPB Q12 [facility] Stop: 06/19/17 22:01 Last Admin: 06/15/17 10:27 Dose: 200 mls/hr Pantoprazole Sodium (Protonix Ec Tab) 40 mg PO DAILY [facility] Last Admin: 06/15/17 10:27 Dose: 40 mg Pneumococcal Polyvalent Vaccine (Pneumovax 23 Vaccine) 0.5 ml IM .ONCE ONE Stop: 06/17/17 10:01 Results - Vital Signs Recent Vital Signs: Last Vital Signs Temp 98.0 F 06/15/17 15:15 Pulse 76 06/15/17 15:15 Resp 20 06/15/17 15:15 BP 111/75 06/15/17 15:15 Pulse Ox 98 06/15/17 15:15 - Labs Result Diagrams: 06/15/17 08:02 06/15/17 08:02 Labs: Laboratory Results - last 24 hr 06/14/17 06/15/17 06/15/17 19:06 07:16 08:02 WBC 6.5 RBC 3.95 Hgb 12.5 Hct 35.7 MCV 90.5 MCH 31.7 H MCHC 35.0 RDW 14.4 Plt Count 210 MPV 9.3 Neut % (Auto) 69.8 Lymph % (Auto) 20.6 Coffee % (Auto) 5.3 Eos % (Auto) 3.5 Baso % (Auto) 0.8 Neut # 4.5 Lymph # 1.3 Coffee # 0.3 Eos # 0.2 Baso # 0.1 ESR 15 APTT 36 H Sodium Potassium Chloride Carbon Dioxide Anion Gap BUN Creatinine Est GFR ( Amer) Est GFR (Non-Af Amer) Random Glucose Hemoglobin A1c Calcium Total Bilirubin AST ALT Alkaline Phosphatase C-React Prot High Sens Total Protein Albumin Globulin Albumin/Globulin Ratio Triglycerides Cholesterol LDL Cholesterol Direct HDL Cholesterol TSH 3rd Generation Urine Color Straw Urine Clarity Clear Urine pH 5.0 Ur Specific [place] 1.012 Urine Protein Negative Urine Glucose (UA) Normal Urine Ketones Negative Urine Blood 1+ H Urine Nitrate Negative Urine Bilirubin Negative Urine Urobilinogen Normal Ur Leukocyte Esterase Neg Urine WBC (Auto) 1 Urine RBC (Auto) < 1 Ur Squamous Epith Cells < 1 06/15/17 06/15/17 06/15/17 08:02 08:02 08:02 WBC RBC Hgb Hct MCV MCH MCHC RDW Plt Count MPV Neut % (Auto) Lymph % (Auto) Coffee % (Auto) Eos % (Auto) Baso % (Auto) Neut # Lymph # Coffee # Eos # Baso # ESR APTT Sodium 140 Potassium 3.7 Chloride 108 H Carbon Dioxide 25 Anion Gap 11 BUN 10 Creatinine 0.6 L Est GFR ( Amer) > 60 Est GFR (Non-Af Amer) > 60 Random Glucose 91 Hemoglobin A1c 5.6 Calcium 8.5 L Total Bilirubin 1.1 AST 31 ALT 31 Alkaline Phosphatase 55 C-React Prot High Sens 2.86 Total Protein 6.4 Albumin 3.8 Globulin 2.5 Albumin/Globulin Ratio 1.5 Triglycerides 95 Cholesterol 142 LDL Cholesterol Direct 51 HDL Cholesterol 55 TSH 3rd Generation 3.42 Urine Color Urine Clarity Urine pH Ur Specific [place] Urine Protein Urine Glucose (UA) Urine Ketones Urine Blood Urine Nitrate Urine Bilirubin Urine Urobilinogen Ur Leukocyte Esterase Urine WBC (Auto) Urine RBC (Auto) Ur Squamous Epith Cells
--- NOTE | 2017-06-16 00:56 | CON ---
INFECTIOUS DISEASE CONSULTATION REQUESTING PHYSICIAN: . HISTORY OF PRESENT ILLNESS: This patient is a 56-year-old female. She has nonhealing wound on the left medial malleolus and this has been ongoing for a year. According to the daughter, she bought her new shoes and she used them and after that she loves to walk and she walks a lot. 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 She has been having burning, 3/, without radiation. This could be due to footwear that she uses at work. Patient noticed that there is skin breakdown and gradually worsening. She denies any fever. She has been having swelling in the both lower extremities for long time and patient does ambulate for long hours and has several different types of creams she has tried, but it has not been getting better. She denies any fever, chills. Denies any itching in the area. Denies any rashes. Does not have any fever. SURGICAL HISTORY: Significant for tubal ligation. She had 7 kids and 3 are surviving. PAST MEDICAL HISTORY: Negative for diabetes. No hypertension. ALLERGIES: SHE IS NOT ALLERGIC TO ANY MEDICINE. SOCIAL HISTORY: Negative for smoking or drinking or any drug abuse. 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 She speaks mostly [place]. No substance abuse. REVIEW OF SYSTEMS: She denied any fever or chills. Denies ear, nose or throat problems. Denies any chest pain. No shortness of breath. No abdominal pain. No nausea. No vomiting. No diarrhea. No urinary complaints of urgency, frequency, or hematuria. Denies any joint pain. She does get swelling of the lower extremities at night. She has this left leg nonhealing wound. She denies any numbness or tingling. She denies any psych problems. She denies any diabetes or hypertension. She takes no medications as such. PHYSICAL EXAMINATION: VITAL SIGNS: Temperature is 98, pulse 76, blood pressure 111/75, respirations are 20. HEENT: Head is atraumatic and normocephalic. Pupils are reacting to light. Throat, no congestion. No thrush seen. NECK: Supple. JVP is flat. Trachea is central. LUNGS: Clear. Chest wall symmetrical. No crackles or rales heard. HEART: S1 and S2 is regular. No murmurs. No gallop. ABDOMEN: Soft, nontender, no guarding, no rigidity present. EXTREMITIES: Left leg has ulcer with dry blood and crusting and eschar all around, also has nonpitting edema of the left leg. No edema on the right leg. Extremities have no focal deficit otherwise. Skin otherwise is normal. Pulses are palpable on the dorsalis pedis in both feet. LABORATORY DATA: Labs are noted. Labs show white count is 6.7, hemoglobin 12.5, hematocrit is 35.7, platelet count is 210. BUN is 10, creatinine 0.6. UA shows 1+ blood. Micro, wound culture is pending. Blood culture x2 are negative. UA and urine C and S has been requested. Patient is on cefepime 2 g and vancomycin 1 g q. 12 hours at this time. Lab reports show that she had a duplex scan of lower extremity arteries, which shows no evidence of deep or superficial vein thrombosis of left lower extremity. Valvular incompetence noted in the left saphenofemoral junction, popliteal, posterior tibial, peroneal, and greater saphenous vein, so which she probably has also secondary to that. She had an MRI done and the MRI shows no evidence of osteomyelitis. Skin and subcutaneous defect adjacent to the medial malleolus without evidence of discrete traumatic fluid collection, well-demarcated bony lesion at the mid portion of the left talar bone measuring 11.1 and 12.3. The without evidence of surrounding bone edema. There is nothing going on in the left talar bone at this time. It is only in the medial malleolus that she has nonhealing ulcer, which is probably a venous ulcer due to incompetent veins. I told her she will need to take oral antibiotics for now. We will wait for the culture report and then send her with oral antibiotics and she needs to follow up as outpatient and she needs to wear elastic stockings once the ulcer heals and she needs to be on multivitamins, vitamin C, zinc, calcium and other vitamins to ensure proper skin healing and to avoid those shoes. She does have venous insufficiency and because her legs swells up, it is difficult for the ulcer to heal. Celestina Jaramillo MD
[2017-06-16] MEDS: Sodium Chloride 0.9% 1,000 ML IV SCH ×2 (05:14→10:20)
[2017-06-16] MEDS: Vancomycin 1 gm/NS 200 ml 1 GM/200 ML BAG IVPB SCH (06:11)
[2017-06-16 08:28] LABS: BASO # 0.1 K/uL (0.0-0.2); EOS # 0.3 K/uL (0.0-0.7); HEMATOCRIT 38.1 % (34.0-47.0); LYMPH # 1.4 K/uL (1.0-4.3); LYMPH % 16.4 % (20.0-40.0); MEAN CELL VOLUME 90.4 fL (81.0-99.0); MEAN CORPUSCULAR HGB CONC 34.3 g/dL (33.0-37.0); MEAN PLATELET VOLUME 10.1 fL (7.2-11.7); MONO # 0.5 K/uL (0.0-0.8); MONO % 5.6 % (0.0-10.0); RED CELL DISTRIBUTION WIDTH 14.5 % (11.5-14.5); WHITE BLOOD COUNT 8.3 K/uL (4.8-10.8)
[2017-06-16 08:44] VITALS: BP 128/77; PULSE 78; TEMP 98; O2SAT 98
[2017-06-16 09:01] LABS: TOTAL PROTEIN 6.6 g/dL (6.3-8.3)
[2017-06-16 09:55] LABS: ALB/GLOB RATIO 1.4 (1.0-2.1); ALKALINE PHOSPHATASE 56 U/L (38-126); ALT/SGPT 35 U/L (9-52); AST/SGOT 32 U/L (14-36); BILIRUBIN,TOTAL 0.7 mg/dL (0.2-1.3); BLOOD UREA NITROGEN 12 mg/dL (7-17); CARBON DIOXIDE 22 mmol/L (22-30); CHLORIDE 108 mmol/L (98-107); GFR AFRICAN-AMERICAN > 60; GLUCOSE,RANDOM 91 mg/dL (65-105); POTASSIUM 3.6 mmol/L (3.6-5.2); SODIUM 140 mmol/L (132-148)
[2017-06-16] MEDS: Cefepime IV 2 gm in Dextrose 2 GM/100 ML BAG IVPB SCH (10:06)
[2017-06-16] MEDS: Pantoprazole 40 mg EC Tab PO SCH (10:06)
[2017-06-16] MEDS ORDERED: Pneumococcal 23-Valent Vaccine IM ONE (14:45)
[2017-06-16] MEDS ORDERED: Influenza Vaccine 60 mcg/0.5 mL SYR (4YR UP) IM ONE (14:45)
--- NOTE | 2017-06-16 15:25 | CP.PCM.DIS ---
<Myron Woods - Last Filed: 06/16/17 15:18> Provider - Provider Date of Admission: 06/14/17 17:19 Attending physician: Claudette Sandoval DO Primary care physician: [facility] Consults: Dr. Kishore Avalos Time Spent in preparation of Discharge (in minutes): 90 Hospital Course - Lab Results Lab Results: Micro Results 06/15/17 06:40 Urine,Clean Catch Urine Culture - Final No Growth (<1,000 CFU/ML) 06/14/17 14:59 Leg - Left Gram Stain - Final 06/14/17 14:59 Leg - Left Wound Culture - Final Escherichia Coli Beta Hemolytic Strep Group B 06/14/17 12:00 Blood Blood Culture - Preliminary NO GROWTH AFTER 24 HOURS 06/14/17 14:55 Blood Blood Culture - Preliminary NO GROWTH AFTER 24 HOURS Most Recent Lab Values WBC 8.3 K/uL (4.8-10.8) 06/16/17 08:15 RBC 4.21 Mil/uL (3.80-5.20) 06/16/17 08:15 Hgb 13.1 g/dL (11.0-16.0) 06/16/17 08:15 Hct 38.1 % (34.0-47.0) 06/16/17 08:15 MCV 90.4 fL (81.0-99.0) 06/16/17 08:15 MCH 31.0 pg (27.0-31.0) 06/16/17 08:15 MCHC 34.3 g/dL (33.0-37.0) 06/16/17 08:15 RDW 14.5 % (11.5-14.5) 06/16/17 08:15 Plt Count 193 K/uL (130-400) 06/16/17 08:15 MPV 10.1 fL (7.2-11.7) 06/16/17 08:15 Neut % (Auto) 74.0 % (50.0-75.0) 06/16/17 08:15 Lymph % (Auto) 16.4 % (20.0-40.0) L 06/16/17 08:15 [place] % (Auto) 5.6 % (0.0-10.0) 06/16/17 08:15 Eos % (Auto) 3.0 % (0.0-4.0) 06/16/17 08:15 Baso % (Auto) 1.0 % (0.0-2.0) 06/16/17 08:15 Neut # 6.1 K/uL (1.8-7.0) 06/16/17 08:15 Lymph # 1.4 K/uL (1.0-4.3) 06/16/17 08:15 [place] # 0.5 K/uL (0.0-0.8) 06/16/17 08:15 Eos # 0.3 K/uL (0.0-0.7) 06/16/17 08:15 Baso # 0.1 K/uL (0.0-0.2) 06/16/17 08:15 ESR 15 mm/hr (0-20) 06/15/17 08:02 APTT 36 SECONDS (21-34) H 06/14/17 19:06 Sodium 140 mmol/L (132-148) 06/16/17 08:15 Potassium 3.6 mmol/L (3.6-5.2) 06/16/17 08:15 Chloride 108 mmol/L (98-107) H 06/16/17 08:15 Carbon Dioxide 22 mmol/L (22-30) 06/16/17 08:15 Anion Gap 14 (10-20) 06/16/17 08:15 BUN 12 mg/dL (7-17) 06/16/17 08:15 Creatinine 0.6 mg/dL (0.7-1.2) L 06/16/17 08:15 Est GFR ( Amer) > 60 06/16/17 08:15 Est GFR (Non-Af Amer) > 60 06/16/17 08:15 Random Glucose 91 mg/dL (65-105) 06/16/17 08:15 Hemoglobin A1c 5.6 % (4.2-6.5) 06/15/17 08:02 Calcium 9.0 mg/dl (8.6-10.4) 06/16/17 08:15 Total Bilirubin 0.7 mg/dL (0.2-1.3) 06/16/17 08:15 AST 32 U/L (14-36) 06/16/17 08:15 ALT 35 U/L (9-52) 06/16/17 08:15 Alkaline Phosphatase 56 U/L (38-126) 06/16/17 08:15 C-React Prot High Sens 2.86 mg/L (1.00-3.00) 06/15/17 08:02 Total Protein 6.6 g/dL (6.3-8.3) 06/16/17 08:15 Albumin 3.9 g/dL (3.5-5.0) 06/16/17 08:15 Globulin 2.7 gm/dL (2.2-3.9) 06/16/17 08:15 Albumin/Globulin Ratio 1.4 (1.0-2.1) 06/16/17 08:15 Triglycerides 95 mg/dL (0-149) 06/15/17 08:02 Cholesterol 142 mg/dL (0-199) 06/15/17 08:02 LDL Cholesterol Direct 51 mg/dL (0-129) 06/15/17 08:02 HDL Cholesterol 55 mg/dL (30-70) 06/15/17 08:02 TSH 3rd Generation 3.42 mIU/L (0.46-4.68) 06/15/17 08:02 Urine Color Straw (YELLOW) 06/15/17 07:16 Urine Clarity Clear (Clear) 06/15/17 07:16 Urine pH 5.0 (5.0-8.0) 06/15/17 07:16 Ur Specific [place] 1.012 (1.003-1.030) 06/15/17 07:16 Urine Protein Negative mg/dL (NEGATIVE) 06/15/17 07:16 Urine Glucose (UA) Normal mg/dL (Normal) 06/15/17 07:16 Urine Ketones Negative mg/dL (NEGATIVE) 06/15/17 07:16 Urine Blood 1+ (NEGATIVE) H 06/15/17 07:16 Urine Nitrate Negative (NEGATIVE) 06/15/17 07:16 Urine Bilirubin Negative (NEGATIVE) 06/15/17 07:16 Urine Urobilinogen Normal mg/dL (0.2-1.0) 06/15/17 07:16 Ur Leukocyte Esterase Neg Becca/uL (Negative) 06/15/17 07:16 Urine WBC (Auto) 1 /hpf (0-5) 06/15/17 07:16 Urine RBC (Auto) < 1 /hpf (0-3) 06/15/17 07:16 Ur Squamous Epith Cells < 1 /hpf (0-5) 06/15/17 07:16 - Hospital Course Hospital Course: Non-healing leg wound r/o osteomyelitis - improving Vancomycin 1 gm IVPB q12h Cefepime 2gm IVPB q12h NS @ 75 cc/hr Left LE MRI 06/15 - No evidence of osteomyelitis. Skin and subcutaneous defect adjacent to the medial malleolus without evidence of discrete drainable fluid collection. Well demarcated bony lesion at the midportion of the left talar bone measures 11.1 millimeter in the transverse diameter and 12.3 millimeter in the AP diameter demonstrates hypointense thin rim without evidence of surrounding bone marrow edema. If clinically warranted further evaluation by postcontrast images may be obtained. The differential consideration includes both benign and less likely malignant neoplasm. Soft tissue edema at the distal left leg and around the left ankle. Mild flexor and peroneal tendinopathy. ED consulted surgery Dr. Novak, help appreciated. They recommended podiatry evaluation. Podiatry Dr. Avalos consulted, help appreciated. ID Dr. Jaramillo consulted, help appreciated. Left LE venous dopplers negative for DVT ESR 15 CRP 2.86 blood, wound cultures - negative at 24 hours UA - negative Wound care referral Prophylactic Measure Heparin 5000 units SC Q8 Protonix 40 mg PO daily Heart Healthy Diet hemoglobin A1c 5.6 TSH 3.42 Lipid panel - HDL 55/LDL 51/Chol 142/Trigly 95 This is a 56 year old female with no PMHx who presented complaining of a non- healing wound on the left leg. The wound had been ongoing for about 1 year. She admitted to pain in the region of the wound. There was skin breakdown that had been gradually worsening over time. She was admitted and patient was treated with IV antibiotic therapy as detailed above. An MRI of the foor was used to evaluate for possible osteomyelitis which was negative. Surgery and podiatry evaluated the patient and I&D was deemed unnecessary. The wound was dressed by the podiatry team during her stay. Dr. Jaramillo, ID was asked to evaluate the patient and the abx above were deemed fit. Given the negative MRI results for bone infiltration, the pt was changed to PO abx, Cipro 500mg PO BID x10 days upon discharge. The patient was advised to have close follow up with her PMD, the [facility] and to see Dr. Avalos as well. She expressed understanding of these instructions and was discharged. Discharge Exam - Head Exam Head Exam: ATRAUMATIC, NORMOCEPHALIC - Eye Exam Eye Exam: EOMI, Normal appearance - ENT Exam ENT Exam: Mucous Membranes Moist - Respiratory Exam Respiratory Exam: NORMAL BREATHING PATTERN. absent: Rales, Rhonchi - Cardiovascular Exam Cardiovascular Exam: REGULAR RHYTHM, +S1, +S2 - Extremities Exam Additional comments: found dressing is c/d/i - Neurological Exam Neurological exam: Alert, Oriented x3 - Skin Skin Exam: Dry, Warm Discharge Plan - Follow Up Plan Condition: STABLE Disposition: HOME/ ROUTINE Instructions: Ciprofloxacin (By mouth), Probiotic (By mouth), Acute Wound Care (DC) Additional Instructions: Patient will be discharged home. She will need follow up with her PCP within 1- 2 weeks. She will be on Cipro 500mg BID for 10 days and Florastor. She will also need follow up with Dr. Jaramillo and Dr. Avalos. These instructions were explained to her and she expressed understanding. Referrals: Celestina Jaramillo MD [Staff Provider] - Sunitha Avalos DPM [Staff Provider] - <Braden Mccarthy - Last Filed: 06/16/17 16:26> Provider - Provider Date of Admission: 06/14/17 17:19 Attending physician: Claudette Sandoval DO Time Spent in preparation of Discharge (in minutes): 40 Hospital Course - Lab Results Lab Results: Micro Results 06/14/17 12:00 Blood Blood Culture - Preliminary NO GROWTH AFTER 48 HOURS 06/14/17 14:55 Blood Blood Culture - Preliminary NO GROWTH AFTER 48 HOURS 06/15/17 06:40 Urine,Clean Catch Urine Culture - Final No Growth (<1,000 CFU/ML) 06/14/17 14:59 Leg - Left Gram Stain - Final 06/14/17 14:59 Leg - Left Wound Culture - Final Escherichia Coli Beta Hemolytic Strep Group B Most Recent Lab Values WBC 8.3 K/uL (4.8-10.8) 06/16/17 08:15 RBC 4.21 Mil/uL (3.80-5.20) 06/16/17 08:15 Hgb 13.1 g/dL (11.0-16.0) 06/16/17 08:15 Hct 38.1 % (34.0-47.0) 06/16/17 08:15 MCV 90.4 fL (81.0-99.0) 06/16/17 08:15 MCH 31.0 pg (27.0-31.0) 06/16/17 08:15 MCHC 34.3 g/dL (33.0-37.0) 06/16/17 08:15 RDW 14.5 % (11.5-14.5) 06/16/17 08:15 Plt Count 193 K/uL (130-400) 06/16/17 08:15 MPV 10.1 fL (7.2-11.7) 06/16/17 08:15 Neut % (Auto) 74.0 % (50.0-75.0) 06/16/17 08:15 Lymph % (Auto) 16.4 % (20.0-40.0) L 06/16/17 08:15 [place] % (Auto) 5.6 % (0.0-10.0) 06/16/17 08:15 Eos % (Auto) 3.0 % (0.0-4.0) 06/16/17 08:15 Baso % (Auto) 1.0 % (0.0-2.0) 06/16/17 08:15 Neut # 6.1 K/uL (1.8-7.0) 06/16/17 08:15 Lymph # 1.4 K/uL (1.0-4.3) 06/16/17 08:15 [place] # 0.5 K/uL (0.0-0.8) 06/16/17 08:15 Eos # 0.3 K/uL (0.0-0.7) 06/16/17 08:15 Baso # 0.1 K/uL (0.0-0.2) 06/16/17 08:15 ESR 15 mm/hr (0-20) 06/15/17 08:02 APTT 36 SECONDS (21-34) H 06/14/17 19:06 Sodium 140 mmol/L (132-148) 06/16/17 08:15 Potassium 3.6 mmol/L (3.6-5.2) 06/16/17 08:15 Chloride 108 mmol/L (98-107) H 06/16/17 08:15 Carbon Dioxide 22 mmol/L (22-30) 06/16/17 08:15 Anion Gap 14 (10-20) 06/16/17 08:15 BUN 12 mg/dL (7-17) 06/16/17 08:15 Creatinine 0.6 mg/dL (0.7-1.2) L 06/16/17 08:15 Est GFR ( Amer) > 60 06/16/17 08:15 Est GFR (Non-Af Amer) > 60 06/16/17 08:15 Random Glucose 91 mg/dL (65-105) 06/16/17 08:15 Hemoglobin A1c 5.6 % (4.2-6.5) 06/15/17 08:02 Calcium 9.0 mg/dl (8.6-10.4) 06/16/17 08:15 Total Bilirubin 0.7 mg/dL (0.2-1.3) 06/16/17 08:15 AST 32 U/L (14-36) 06/16/17 08:15 ALT 35 U/L (9-52) 06/16/17 08:15 Alkaline Phosphatase 56 U/L (38-126) 06/16/17 08:15 C-React Prot High Sens 2.86 mg/L (1.00-3.00) 06/15/17 08:02 Total Protein 6.6 g/dL (6.3-8.3) 06/16/17 08:15 Albumin 3.9 g/dL (3.5-5.0) 06/16/17 08:15 Globulin 2.7 gm/dL (2.2-3.9) 06/16/17 08:15 Albumin/Globulin Ratio 1.4 (1.0-2.1) 06/16/17 08:15 Triglycerides 95 mg/dL (0-149) 06/15/17 08:02 Cholesterol 142 mg/dL (0-199) 06/15/17 08:02 LDL Cholesterol Direct 51 mg/dL (0-129) 06/15/17 08:02 HDL Cholesterol 55 mg/dL (30-70) 06/15/17 08:02 TSH 3rd Generation 3.42 mIU/L (0.46-4.68) 06/15/17 08:02 Urine Color Straw (YELLOW) 06/15/17 07:16 Urine Clarity Clear (Clear) 06/15/17 07:16 Urine pH 5.0 (5.0-8.0) 06/15/17 07:16 Ur Specific [place] 1.012 (1.003-1.030) 06/15/17 07:16 Urine Protein Negative mg/dL (NEGATIVE) 06/15/17 07:16 Urine Glucose (UA) Normal mg/dL (Normal) 06/15/17 07:16 Urine Ketones Negative mg/dL (NEGATIVE) 06/15/17 07:16 Urine Blood 1+ (NEGATIVE) H 06/15/17 07:16 Urine Nitrate Negative (NEGATIVE) 06/15/17 07:16 Urine Bilirubin Negative (NEGATIVE) 06/15/17 07:16 Urine Urobilinogen Normal mg/dL (0.2-1.0) 06/15/17 07:16 Ur Leukocyte Esterase Neg [place]cca/uL (Negative) 06/15/17 07:16 Urine WBC (Auto) 1 /hpf (0-5) 06/15/17 07:16 Urine RBC (Auto) < 1 /hpf (0-3) 06/15/17 07:16 Ur Squamous Epith Cells < 1 /hpf (0-5) 06/15/17 07:16 Attending/Attestation - Attestation I have personally seen and examined this patient.: Yes I have fully participated in the care of the patient.: Yes I have reviewed all pertinent clinical information, including history, physical exam and plan: Yes Notes (Text): patient was seen and examined.Discussed with Dr Jaramillo. We will discharge her on Cipro 500mg po bid for 10days Discharge plan discussed with the patient.Explained about wound care , antibiotics and follow up
--- NOTE | 2017-06-16 16:56 | CP.PCM.PN ---
Subjective - Date & Time of Evaluation Date of Evaluation: 06/16/17 Time of Evaluation: 13:05 - Subjective Subjective: Podiatry Progress note for Dr. Avalos 56 year old female was seen at bedside regarding left leg ulceration. She denies any pain to the area. AAOx3, NAD. Denies of any acute overnight events. She denies any n/v/f/c/sob/cp. Objective - Vital Signs/Intake and Output Vital Signs (last 24 hours): Temp Pulse Resp BP Pulse Ox 98.0 F 78 20 128/77 98 06/16/17 08:00 06/16/17 08:00 06/16/17 08:00 06/16/17 08:00 06/16/17 08:00 Intake and Output: 06/16/17 06/16/17 06:59 18:59 Intake Total 1640 1000 Balance 1640 1000 - Labs Labs: 06/16/17 08:15 06/16/17 08:15 APTT 36 SECONDS (21-34) H 06/14/17 19:06 - Constitutional Appears: Well, Non-toxic, No Acute Distress - Extremities Exam Additional comments: Vasc: DP and PT pulses palpable 2/4 b/l. Skin temperature warm to warm from proximal to distal. CFT < 3 seconds to all digits b/l. Minimal edema noted to periwound area Derm: Approximately 3 cm x 3 cm x 0.1 cm open ulceration noted to medial distal aspect of patient's left leg, 90% coverage by eschar. Minimal periwound erythema noted. Scant amount of serous drainage expressed from wound. No probe to bone, tunneling, tracking or undermining. No malodor, increased warmth Skin is well hydrated b/l. Neuro: epicritic and protective sensation grossly intact b/l Ortho: Tenderness on palpation to wound on the left leg - Neurological Exam Neurological Exam: Alert, Awake, Oriented x3 - Psychiatric Exam Psychiatric exam: Normal Affect, Normal Mood Assessment and Plan - Assessment and Plan (Free Text) Assessment: 56 year old female with venous stasis ulceration of distal medial left leg Plan: Patient examined and evaluated Discussed in detail with attending, Dr. Avalos lab, vitals, chart reviewed;afebrile, WBC 8.3 Cont abx per ID MRI: No evidence of OM Venous Duplex: no evidence of DVT, valvular incompetenece noted at the left saphenofemoral junction, popliteal, posterior tibial, peroneal and great saphenous veins Patient wound dressed with betadine gauze, kerlix, EMILY Podiatry will continue to follow while patient in house
[2017-06-17] MEDS ORDERED: Pneumococcal 23-Valent Vaccine IM ONE (10:00)
[2017-06-17] MEDS ORDERED: Influenza Vaccine 60 mcg/0.5 mL SYR (4YR UP) IM ONE (10:00)
== END 2017-06-16 15:00 | disposition home or self-care (01) | DRG 593 ==
LOC: C.ER 14:26 → C.9E 17:19 → C.3T 19:12
PROVIDERS: ADMIT Hospitalist; ATTEND Hospitalist
DX: L97.521 Non-pressure chronic ulcer of other part of left foot limited to breakdown of skin (principal); L03.116 Cellulitis of left lower limb; I83.009 Varicose veins of unspecified lower extremity with ulcer of unspecified site